=== PATIENT | female | born 1985 | race Caucasian/White ===

== ENCOUNTER → 2017-08-23 | Outpatient (CLI) | payer OTHER ==
[~2017-08-23] MED LIST: ACET500 PO; AMOX500 PO; AZIT250 PO; BC PILLS; BENZ100A PO; BIRTHCONTROL; Bactrim Ds Tab1 EACH PO; CEPH500 PO; CIPR500 PO; CYCL10 PO; HYDACE5 PO; HYDR1TAB94; IBUP800 PO; MULVITMINE PO; OXYACE5T PO; PROM25 PO; RXOXYACE PO; RXPROM25 PO; STOMUL PO; Sudogest120 MG PO
[2017-08-23 11:56] LABS: BASOPHILS ABSOLUTE AUTO 0.03 K/mm3 (0.00-0.23); BASOPHILS PERCENT AUTO 0 % (0-2); EOSINOPHILS ABSOLUTE AUTO 0.09 K/mm3 (0.00-0.68); EOSINOPHILS PERCENT AUTO 1 % (0-6); Hemoglobin 14.4 g/dL (11.5-16.0); IMMATURE GRAN ABSOLUTE AUTO 0.01 K/mm3 (0.00-0.10); IMMATURE GRAN PERCENT AUTO 0 % (0-1); LYMPHOCYTES ABSOLUTE AUTO 2.03 K/mm3 (0.84-5.20); LYMPHOCYTES PERCENT AUTO 28 % (21-46); MONOCYTES ABSOLUTE AUTO 0.39 K/mm3 (0.16-1.47); MONOCYTES PERCENT AUTO 5 % (4-13); Mean Corpuscular HGB 32.3 pg (26.0-34.0); Mean Corpuscular HGB Conc 35.1 g/dL (31.5-36.5); Mean Corpuscular Volume 92 fL (80-100); Mean Platelet Volume 7.7 fL (9.1-12.4); NEUTROPHILS ABSOLUTE AUTO 4.64 K/mm3 (1.96-9.15); NEUTROPHILS PERCENT AUTO 65 % (41-73); Platelet Count 501 K/mm3 (150-400); RDW Coefficient Variation 11.7 % (11.7-14.2); RDW Standard Deviation 39.5 fL (35.1-46.3); Red Blood Cell Count 4.46 M/mm3 (3.80-5.20); White Blood Cell Count 7.19 K/mm3 (4.00-11.30)
[2017-08-23 12:09] LABS: Alanine Aminotransfer (ALT/SGP 21 U/L (12-78); Albumin, Blood 4.2 g/dL (3.4-5.0); Alk Phos 69 U/L (40-126); Anion Gap 11 mmol/L (6-16); Aspartate Aminotrans (AST/SGOT 14 U/L (12-37); Bilirubin, Total 0.2 mg/dL (0.1-1.0); Blood Urea Nitrogen 11 mg/dL (8-24); Bun/Creatinine Ratio 16.9 (12.0-20.0); CO2, Blood 27 mmol/L (21-32); Calcium, Blood 9.7 mg/dL (8.5-10.1); Chloride, Blood 101 mmol/L (98-108); Creatinine, Blood 0.65 mg/dL (0.40-1.00); Globulin, Blood 4.3 g/dL (2.2-4.0); Glomerular Filtration Rate >60 (60-); Glucose, Blood 99 mg/dL (70-99); Potassium, Blood 3.8 mmol/L (3.5-5.5); Sodium, Blood 139 mmol/L (136-145); Total Protein, Blood 8.5 g/dL (6.4-8.2)
== END | disposition home or self-care (01) ==
LOC: LAB EV 11:53
PROVIDERS: Physician Assistant
DX: R10.84 Generalized abdominal pain (principal)
CPT/HCPCS: 80053; 83690; 85025

== ENCOUNTER → 2017-10-05 | Outpatient (CLI) | payer OTHER | END | disposition home or self-care (01) | LOC: LAB SHORT 14:01 → LAB 14:01 | PROVIDERS: Obstetrics & Gynecology | DX: Z12.4 Encounter for screening for malignant neoplasm of cervix (principal) | CPT/HCPCS: 87624; G0123 ==

== ENCOUNTER → 2020-04-05 | Outpatient (CLI) | payer OTHER ==
[~2020-04-05] MED LIST changes: +Nuvaring Vagin1 EACH VAG
== END | disposition home or self-care (01) ==
LOC: LAB EV 14:18 → LAB SHORT 14:18
DX: N39.0 Urinary tract infection, site not specified (principal)
CPT/HCPCS: 87077; 87086; 87186

== ENCOUNTER 2021-04-12 15:54 | Emergency (ER) | payer OTHER ==
[~2021-04-12] VITALS: Ht 149.9 cm; Wt 56.7 kg
[2021-04-12 16:58] LABS: BASOPHILS ABSOLUTE AUTO 0.03 K/mm3 (0.00-0.23); BASOPHILS PERCENT AUTO 1 % (0-2); EOSINOPHILS ABSOLUTE AUTO 0.11 K/mm3 (0.00-0.68); EOSINOPHILS PERCENT AUTO 2 % (0-6); Hematocrit 40.1 % (33.0-51.0); Hemoglobin 13.8 g/dL (11.5-16.0); IMMATURE GRAN ABSOLUTE AUTO 0.01 K/mm3 (0.00-0.10); IMMATURE GRAN PERCENT AUTO 0 % (0-1); LYMPHOCYTES ABSOLUTE AUTO 2.47 K/mm3 (0.84-5.20); LYMPHOCYTES PERCENT AUTO 42 % (21-46); MONOCYTES ABSOLUTE AUTO 0.39 K/mm3 (0.16-1.47); MONOCYTES PERCENT AUTO 7 % (4-13); Mean Corpuscular HGB 31.7 pg (26.0-34.0); Mean Corpuscular HGB Conc 34.4 g/dL (31.5-36.5); Mean Corpuscular Volume 92 fL (80-100); Mean Platelet Volume 7.9 fL (9.1-12.4); NEUTROPHILS ABSOLUTE AUTO 2.94 K/mm3 (1.96-9.15); NEUTROPHILS PERCENT AUTO 49 % (41-73); Platelet Count 511 K/mm3 (150-400); RDW Coefficient Variation 11.9 % (11.7-14.2); RDW Standard Deviation 40.4 fL (35.1-46.3); Red Blood Cell Count 4.35 M/mm3 (3.80-5.20); White Blood Cell Count 5.95 K/mm3 (4.00-11.30)
[2021-04-12 17:23] LABS: Alanine Aminotransfer (ALT/SGP 19 U/L (12-78); Albumin, Blood 3.9 g/dL (3.4-5.0); Albumin/Globulin Ratio 0.9 (0.8-1.8); Alk Phos 63 U/L (50-136); Anion Gap 6 mmol/L (6-16); Aspartate Aminotrans (AST/SGOT 14 U/L (12-37); Bilirubin, Total 0.2 mg/dL (0.1-1.0); Blood Urea Nitrogen 5 mg/dL (8-24); Bun/Creatinine Ratio 8.9 (12.0-20.0); CO2, Blood 25 mmol/L (21-32); Calcium, Blood 9.1 mg/dL (8.5-10.1); Chloride, Blood 109 mmol/L (98-108); Creatinine, Blood 0.56 mg/dL (0.40-1.00); Globulin, Blood 4.3 g/dL (2.2-4.0); Glomerular Filtration Rate >60 (60-); Glucose, Blood 94 mg/dL (70-99); Potassium, Blood 3.6 mmol/L (3.5-5.5); Sodium, Blood 140 mmol/L (136-145); Total Protein, Blood 8.2 g/dL (6.4-8.2)
== END 2021-04-12 20:18 | disposition home or self-care (01) ==
LOC: ER 15:54
PROVIDERS: Physician Assistant
DX: R10.31 Right lower quadrant pain (principal); R11.0 Nausea; Z88.0 Allergy status to penicillin; Z88.2 Allergy status to sulfonamides; Z88.1 Allergy status to other antibiotic agents; Z88.6 Allergy status to analgesic agent
CPT/HCPCS: 36415; 74177; 76830; 76856; 80053; 83690; 84703; 85025; 93005; 93010; 96374; 96375; 99284-25; J0780; J1885; J2270; J2405; J7030; J7120; Q9967

== ENCOUNTER 2021-11-26 08:13 | Day surgery (SDC) | payer OTHER ==
[~2021-11-26] VITALS: Ht 149.9 cm; Wt 55.7 kg
[~2021-11-26 08:13] MED LIST changes: +LORCET 5-325 M1 EACH PO; +TRAM50
--- NOTE | 2021-11-26 08:32 | NUR ---
Pre-Op teaching done. Pt verbalizes understanding. History, Chart, Medications and Allergies reviewed before start of procedure.Patient States Post-Procedure ride home has been arranged.
--- NOTE | 2021-11-26 09:24 | NUR ---
2 MISSED IV ATTEMPT BY ORD.OCTAVIO L WRIST AND R AC
--- NOTE | 2021-11-26 12:53 | NUR ---
PT ARRIVED TO UNIT FROM PACU. A&OX4. NAUSEATED AND RATING PAIN 9/10. MEDICATED PER ORDERS FOR PAIN AND NAUSEA. PLACED WARM BLANKET TO ABDOMEN FOR COMFORT. K PAD SET UP. PT EATING CRACKERTS AND SIPPING WATER. SCANT AMOUNT DRAINAGE NOTED TO LAP SITE ON R SIDE ABD. OTHER TWO LAP SITES CDI. CALL LIGHT IN REACH. SPOUSE AT BEDSIDE.
[2021-11-26 15:03] LABS: BASOPHILS ABSOLUTE AUTO 0.02 K/mm3 (0.00-0.23); BASOPHILS PERCENT AUTO 0 % (0-2); EOSINOPHILS PERCENT AUTO 0 % (0-6); Hematocrit 35.8 % (33.0-51.0); Hemoglobin 12.2 g/dL (11.5-16.0); IMMATURE GRAN ABSOLUTE AUTO 0.06 K/mm3 (0.00-0.10); IMMATURE GRAN PERCENT AUTO 0 % (0-1); LYMPHOCYTES ABSOLUTE AUTO 0.53 K/mm3 (0.84-5.20); LYMPHOCYTES PERCENT AUTO 4 % (21-46); MONOCYTES ABSOLUTE AUTO 0.16 K/mm3 (0.16-1.47); MONOCYTES PERCENT AUTO 1 % (4-13); Mean Corpuscular HGB 31.5 pg (26.0-34.0); Mean Corpuscular HGB Conc 34.1 g/dL (31.5-36.5); Mean Corpuscular Volume 93 fL (80-100); NEUTROPHILS ABSOLUTE AUTO 14.23 K/mm3 (1.96-9.15); NEUTROPHILS PERCENT AUTO 95 % (41-73); Platelet Count 381 K/mm3 (150-400); RDW Coefficient Variation 11.7 % (11.7-14.2); RDW Standard Deviation 39.6 fL (35.1-46.3); Red Blood Cell Count 3.87 M/mm3 (3.80-5.20)
--- NOTE | 2021-11-26 16:43 | NUR ---
MADE COPY AND GAVE PRESCRIPTION TO PT'S SPOUSE.
--- NOTE | 2021-11-26 18:42 | NUR ---
PT PAINFUL T/O DAY. ATTEMPTED TO SIT UP IN BED FOR DINNER AND BECAME VERY PAINFUL, RATING 10/10. ADMINISTERED SCHEDULED TORADOL AND PRN DILAUDID PER ORDERS. PT NOW RATES PAIN 6/10. WAS ABLE TO AMBULATE IN ROOM AND SIT BRIEFLY IN CHAIR. NOW BACK TO BED. DC'D FAUST CATH PER ORDERS. CALL LIGHT IN REACH.
--- NOTE | 2021-11-27 07:45 | NUR ---
SHIFT SUMMARY POD1 LAVH, R SALPINGO-OOPHORECTOMY, L SALPINGECTOMY. PT REPORTS ABD PAIN OVERNIGHT. PAIN MANAGED WITH 0.5MG DILAUDID TWICE, TORADOL 30MG ONCE, AND NORCO ONCE T/O SHIFT WITH IMPROVEMENT. PT ALSO REPORTS NAUSEA AROUND MIDNIGHT. MEDICATED WITH ZOFRAN 4MG. SMALL AMOUNT OF SS ON PERIPADS. VOIDING 750ML OVERNIGHT. AMBULATES INDEPENDENTLY IN ROOM. PASSING FLATUS. TOLERATING PO INTAKE BUT REPORTS NO APPETITE AT THIS TIME. SALINE LOCK. CALL LIGHT WITHIN REACH. REPORT GIVEN TO SHAYLEE REYES.
[2021-11-27] MEDS ORDERED: HYDR1TAB94 PO (09:31)
--- NOTE | 2021-11-27 10:16 | NUR ---
DISCHARGE SUMMARY PATIENT ALERT AND ORIENTED. IND IN ROOM. TOLERATING REGULAR DIET AND LIQUIDS. SALINE LOCKED. VOIDING WELL AND PASSING GAS. PAIN CONTROLLED WITH PO PAIN MEDS. ABD LAP SITES X3 C/D/I. DISCHARGE ORDERS IN CHART. DISCHARGE EDUCATION GIVEN ON NEW RXS, WOUND CARE, ACTIVITY, AND FOLLOW UP APPTS. IV DC'D WNL. PATIENT LEFT UNIT AT 1000 WITH FOR HOME VIA WHEELCHAIR.
== END 2021-11-27 09:45 | disposition home or self-care (01) ==
LOC: ORSCMMR 08:13 → ORD 09:30 → SURS 12:19 → ORSCMMR 11-27 09:45
PROVIDERS: Obstetrics & Gynecology
PROC: 0UT7FZZ Resection of Bilateral Fallopian Tubes, Via Natural or Artificial Opening With Percutaneous Endoscopic Assistance (ICD-10-PCS; principal; 2021-11-26 09:30)
PROC: 0UT0FZZ Resection of Right Ovary, Via Natural or Artificial Opening With Percutaneous Endoscopic Assistance (ICD-10-PCS; principal; 2021-11-26 09:30)
PROC: 0UT9FZZ Resection of Uterus, Via Natural or Artificial Opening With Percutaneous Endoscopic Assistance (ICD-10-PCS; principal; 2021-11-26 09:30)
DX: R10.2 Pelvic and perineal pain (principal); N94.89 Other specified conditions associated with female genital organs and menstrual cycle; Q50.5 Embryonic cyst of broad ligament
CPT/HCPCS: 36415; 85025; 88307; A9270; J1170; J1885; J2250; J2405; J3010; J7120

== ENCOUNTER 2021-12-04 20:31 | Emergency (ER) | payer OTHER ==
[~2021-12-04] VITALS: Ht 149.9 cm; Wt 54.9 kg
[~2021-12-04 20:31] MED LIST changes: +HYDR1TAB94 PO
== END 2021-12-04 21:24 | disposition left against medical advice (07) ==
LOC: ER 20:31
DX: R10.31 Right lower quadrant pain (principal); Z90.710 Acquired absence of both cervix and uterus; Z53.21 Procedure and treatment not carried out due to patient leaving prior to being seen by health care provider
CPT/HCPCS: 99281